=== PATIENT | female | born 1950 | race Caucasian/White ===

== ENCOUNTER 2017-01-09 21:50 | Inpatient (IN) | payer MEDICARE ==
[~2017-01-09] VITALS: Ht 162.6 cm; Wt 81.8 kg
[~2017-01-09 21:50] MED LIST: DILTIAZEM INJ 125 MG in SODIUM CHLORIDE 0.9% INJ 100 ML IV PRN; LEVO125T4 PO; NALOXONE HCL 0.4 MG/ML AMP IV PUSH PRN; POTA8CAP PO; SIMV5TAB3 PO; SODIUM CHLORIDE 0.9% FLUSH 10 ML FLUSH IV FLUSH PRN
[2017-01-09 22:15] VITALS: BP 135/90; PULSE 71; RESP 18; TEMP 98.4; O2SAT 97
[2017-01-09] MEDS ORDERED: DILTIAZEM 125 MG/NS 100 ML IV PRN ×2 (22:30)
[2017-01-10] VITALS (15 sets, daily range): BP systolic 100–117; BP diastolic 54–65; PULSE 62–80; RESP 16–18; TEMP 97.7–100.1; O2SAT 96–100
[2017-01-10] MEDS: SODIUM CHLORIDE 0.9% FLUSH 10 ML FLUSH IV FLUSH SCH ×5 (01:13→21:00)
[2017-01-10] MEDS: SODIUM CHLOR 0.9% 1000 ML INJ 1,000 ML IV SCH ×3 (01:14→18:00)
[2017-01-10] MEDS: PIPERACIL-TAZO 4.5 GM PREMIX 100 ML IV SCH ×4 (01:15→20:30)
[2017-01-10 01:38] LABS: AUTOMATED NEUTROPHIL # 8.5 TH/MM3 (1.8-7.7); BASOPHIL % 0.2 % (0.0-2.0); EOSINOPHIL % 0.2 % (0.0-4.0); HEMO FLAGS DIFF FINAL; LYMPH % 8.3 % (9.0-44.0); LYMPHOCYTE # 0.8 TH/MM3 (1.0-4.8); MEAN CELL VOLUME 90.9 FL (80.0-100.0); MEAN CORPUSCULAR HEMOGLOBIN 29.7 PG (27.0-34.0); MEAN CORPUSCULAR HGB CONC 32.7 % (32.0-36.0); MONO % 5.1 % (0.0-8.0); NEUT % 86.2 % (16.0-70.0); PLATELET COUNT 174 TH/MM3 (150-450); RED BLOOD COUNT 4.18 MIL/MM3 (4.00-5.30); RED CELL DISTRIBUTION WIDTH 13.6 % (11.6-17.2); WHITE BLOOD COUNT 9.9 TH/MM3 (4.0-11.0)
--- NOTE | 2017-01-10 01:54 | HHI.HP ---
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 starting 2am no black or red color only food in the vomitus vomited about 22x total, the last vomit was yellow bile dont think she had fever ; abdominal pain in the mid abdomen food ate was from home, no one else was sick the heart rate was high in ER afib with RVR but BP was coming down too did have chest pain the night before all this started at the time of chest pain then, there was no vomiting, no nausea, no abdominal pain, but did feel the palpitations no radiation of pain mid sternal fell at work on the 12/28/16 onto her left side left side has been irritated since that fall- left shoulder went to urgent care then- they did xrays - was just told shoulder was just inflammed, no fracture has been off work for 2 weeks because of that Review of Systems Except as stated in HPI: all other systems reviewed are Neg Past Family Social History Past Medical History htn was told she needs antibiotics prior to surgery- because of 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 hypothyroidism post thyroidectomy due to graves osteoporosis Past Surgical History thyroidectomy breast sx x 5, for 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 tubal ligation partial hysterectomy efra pereyra Allergies: Coded Allergies: No Known Allergies (Unverified , 01/09/17) Family History hodgkins disease- daughter at 24 sister- uterine cancer too brother- intestine cancer Social History used to smoke , quit 25yrs ago no etoh abuse no drugs lives with of 50yrs , still driving, woks at [employer] Physical Exam Vital Signs Vital Signs Date Time Temp Pulse Resp B/P (MAP) Pulse Ox O2 Delivery O2 Flow Rate FiO2 01/09/17 22:15 98.4 71 18 135/90 (105) 97 Physical Exam GENERAL: This is a pleasant lady, looks weak and dehydrated clinically, in no apparent distress. SKIN: No rashes, ecchymoses or lesions. Cool and dry. HEAD: Atraumatic. Normocephalic. No temporal or scalp tenderness. EYES: No scleral icterus. No injection or drainage. ENT: Nose without bleeding, purulent drainage or septal hematoma. Airway patent. NECK: Trachea midline. No JVD CARDIOVASCULAR: Regular rate and rhythm without gallops, or rubs. systolic murmur at precordium with radiation to axila RESPIRATORY: Clear to auscultation. Breath sounds equal bilaterally. No wheezes , rales, or rhonchi. GASTROINTESTINAL: Abdomen soft, non-tender, nondistended. . No guarding. MUSCULOSKELETAL: Extremities without clubbing, cyanosis, or edema.No calf tenderness. NEUROLOGICAL: Awake and alert. Motor and sensory grossly within normal limits. Normal speech. Laboratory Laboratory Tests Test 01/10/17 01:10 White Blood Count 9.9 Red Blood Count 4.18 Hemoglobin 12.4 Hematocrit 38.0 Mean Corpuscular Volume 90.9 Mean Corpuscular Hemoglobin 29.7 Mean Corpuscular Hemoglobin Concent 32.7 Red Cell Distribution Width 13.6 Platelet Count 174 Mean Platelet Volume 9.7 Neutrophils (%) (Auto) 86.2 Lymphocytes (%) (Auto) 8.3 Monocytes (%) (Auto) 5.1 Eosinophils (%) (Auto) 0.2 Basophils (%) (Auto) 0.2 Neutrophils # (Auto) 8.5 Lymphocytes # (Auto) 0.8 Monocytes # (Auto) 0.5 Eosinophils # (Auto) 0.0 Basophils # (Auto) 0.0 CBC Comment DIFF FINAL Differential Comment Result Diagram: 01/10/17 0110 Caprini VTE Risk Assessment Caprini VTE Risk Assessment: Mod/High Risk (score >= 2) Caprini Risk Assessment Model Point Value = 1 Point Value = 2 Point Value = 3 Point Value = 5 Age 41-60 Minor surgery BMI > 25 kg/m2 Swollen legs Varicose veins or History of unexplained or recurrent spontaneous Oral contraceptives or hormone replacement Sepsis (< 1 month) Serious lung disease, including pneumonia (< 1 month) Abnormal pulmonary function Acute myocardial infarction Congestive heart failure (< 1 month) History of inflammatory bowel disease Medical patient at bed rest Age 61-74 Arthroscopic surgery Major open surgery (> 45 min) Laparoscopic surgery (> 45 min) Malignancy Confined to bed (> 72 hours) Immobilizing plaster cast Central venous access Age >= 75 History of VTE Family history of VTE Factor V Leiden Prothrombin [id number] Lupus anticoagulant Anticardiolipin antibodies Elevated serum homocysteine Heparin-induced thrombocytopenia Other congenital or acquired thrombophilia Stroke (< 1 month) Elective arthroplasty Hip, pelvis, or leg fracture Acute spinal cord injury (< 1 month) Prophylaxis Regimen Total Risk Factor Score Risk Level Prophylaxis Regimen 0-1 Low Early ambulation 2 Moderate Order ONE of the following: *Sequential Compression Device (SCD) *Heparin 5000 units SQ BID 3-4 Higher Order ONE of the following medications: *Heparin 5000 units SQ TID *Enoxaparin/Lovenox 40 mg SQ daily (WT < 150 kg, CrCl > 30 mL/min) *Enoxaparin/Lovenox 30 mg SQ daily (WT < 150 kg, CrCl > 10-29 mL/min) *Enoxaparin/Lovenox 30 mg SQ BID (WT < 150 kg, CrCl > 30 mL/min) AND/OR *Sequential Compression Device (SCD) 5 or more Highest Order ONE of the following medications: *Heparin 5000 units SQ TID (Preferred with Epidurals) *Enoxaparin/Lovenox 40 mg SQ daily (WT < 150 kg, CrCl > 30 mL/min) *Enoxaparin/Lovenox 30 mg SQ daily (WT < 150 kg, CrCl > 10-29 mL/min) *Enoxaparin/Lovenox 30 mg SQ BID (WT < 150 kg, CrCl > 30 mL/min) AND *Sequential Compression Device (SCD) Assessment and Plan Assessment and Plan Impression: NSTEMI gastritis vs ACS related afib with RVR secondary to dehydration vs ACS hypotension- due to dehydration/ cardizem induced/ mild cardiogenic shock cardiac murmur on exam hypertriglyceridemia - per patient , from last blood work hypokalemia- replace 40meq po Plan: start heparin drip npo for cath cxr personally reviewed- no evidence of fluid overload/ infiltrates/ pneumothorax ekg reveiwed- irregularly irregular, no acute st t changes continue cardizem cardiology consult continue iv fluids at 100 cc/hr ns echo in am resume home meds check tsh dvt prophylaxis on heparin drip Discussed Condition With patient, her nurse Physician Certification 2 Midnight Certification Type: Admission for Inpatient Services Order for Inpatient Services The services are ordered in accordance with Medicare regulations or non- Medicare payer requirements, as applicable. In the case of services not specified as inpatient-only, they are appropriately provided as inpatient services in accordance with the 2-midnight benchmark. Estimated LOS (days): 2 days is the estimated time the patient will need to remain in the hospital, assuming treatment plan goals are met and no additional complications. Post-Hospital Plan: Home Delisa Pollard MD Jan 10, 2017 01:53
[2017-01-10 01:56] LABS: ANION GAP 8 MEQ/L (5-15); AST (GOT) 19 U/L (15-37); BICARBONATE 27.2 MEQ/L (21.0-32.0); BLOOD UREA NITROGEN 13 MG/DL (7-18); CHLORIDE 110 MEQ/L (98-107); GLOMERULAR FILTRATION RATE 81 ML/MIN (>89); POTASSIUM 3.4 MEQ/L (3.5-5.1); SODIUM (NA) 145 MEQ/L (136-145)
[2017-01-10 01:58] LABS: ALKALINE PHOSPHATASE 75 U/L (45-117); ALT (GPT) 16 U/L (10-53); TOTAL BILIRUBIN ADULT 0.4 MG/DL (0.2-1.0)
[2017-01-10] MEDS ORDERED: HEPARIN SODIUM - IV 10,000 UNITS/10 ML VIAL IV PUSH ONE (02:00)
[2017-01-10] MEDS ORDERED: HEPARIN-D5W 25,000 U/250 ML 250 ML IV PRN (02:00)
[2017-01-10] MEDS ORDERED: HEPARIN 25,000 UNITS-D5W 250 ML - PREMIX IV PRN (02:15)
[2017-01-10] MEDS ORDERED: POTASSIUM CHLORIDE 20 MEQ CONTROLLED RELEASE TAB PO ONE ×2 (02:15→10:45)
[2017-01-10] MEDS: LEVOTHYROXINE SODIUM 125 MCG TAB PO SCH (06:00)
[2017-01-10] MEDS ORDERED: HEPARIN SODIUM - IV 10,000 UNITS/10 ML VIAL IV PUSH PRN ×2 (08:00)
[2017-01-10] MEDS ORDERED: MORPHINE SULFATE 4 MG/ML INJ IV PUSH PRN ×2 (08:30)
[2017-01-10] MEDS ORDERED: MAGNESIUM HYDROXIDE SUSP 30 ML CUP PO PRN (08:30)
[2017-01-10] MEDS ORDERED: NALOXONE HCL 0.4 MG/ML AMP IV PUSH PRN (08:30)
[2017-01-10] MEDS ORDERED: ONDANSETRON HCL 4 MG/2 ML VIAL IVP PRN (08:30)
[2017-01-10] MEDS ORDERED: SODIUM CHLORIDE 0.9% FLUSH 10 ML FLUSH IV FLUSH PRN ×2 (08:30→14:00)
[2017-01-10] MEDS ORDERED: ACETAMINOPHEN 325 MG TAB PO PRN ×2 (08:30)
[2017-01-10] MEDS ORDERED: SENNOSIDES 8.6 MG TAB PO PRN (08:30)
[2017-01-10] MEDS ORDERED: LACTULOSE SYRUP 20 GM/30 ML CUP PO PRN (08:30)
[2017-01-10] MEDS ORDERED: BISACODYL 10 MG SUPP RECTAL PRN (08:30)
[2017-01-10] MEDS ORDERED: oxyCODONE/ACETAMINOPHEN 5 MG/325 MG TAB PO PRN (08:30)
[2017-01-10] MEDS ORDERED: oxyCODONE/ACETAMINOPHEN 10 MG/325 MG TAB PO PRN (08:30)
[2017-01-10] MEDS: DOCUSATE SODIUM 50 MG/SENNA 8.6 MG TAB PO SCH ×2 (09:15→20:30)
[2017-01-10] MEDS ORDERED: PROCHLORPERAZINE 25 MG SUPP RECTAL PRN (09:30)
--- NOTE | 2017-01-10 10:34 | HHI.PR ---
Subjective Remarks was vomiting all day long starting 2am no black or red color only food in the vomitus vomited about 22x total, the last vomit was yellow bile dont think she had fever ; abdominal pain in the mid abdomen food ate was from home, no one else was sick the heart rate was high in ER afib with RVR but BP was coming down too did have chest pain the night before all this started at the time of chest pain then, there was no vomiting, no nausea, no abdominal pain, but did feel the palpitations no radiation of pain mid sternal fell at work on the 12/28/16 onto her left side left side has been irritated since that fall- left shoulder went to urgent care then- they did xrays - was just told shoulder was just inflammed, no fracture has been off work for 2 weeks because of that 01-10 HAS CONVERTED OUT OF AFIB- IN [facility] 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 AT BEDSIDE TROPONINS ARE TRENDING DOWN NOW HAS A HEADACHE DENIES ANY CHEST PAIN OR NAUSEA OR VOMITING NOW REMAINS ON A HEPARIN DRIP HAS NOT SEEN CARDIOLOGY YET Objective Vitals Vital Signs Date Time Temp Pulse Resp B/P (MAP) Pulse Ox O2 Delivery O2 Flow Rate FiO2 01/10/17 08:15 98.8 73 18 107/54 (71) 96 01/10/17 07:01 77 01/10/17 03:00 97.7 80 16 100/65 (77) 98 01/09/17 22:15 98.4 71 18 135/90 (105) 97 I/O 01/09/17 01/09/17 01/09/17 01/10/17 01/10/17 01/10/17 07:00 15:00 23:00 07:00 15:00 23:00 Intake Total 840 ml Balance 840 ml Intake Oral 240 ml IV Total 600 ml # Voids 1 Result Diagram: 01/10/17 0110 01/10/17 0110 Other Results Laboratory Tests Test 01/10/17 01:10 01/10/17 06:46 White Blood Count 9.9 TH/MM3 Red Blood Count 4.18 MIL/MM3 Hemoglobin 12.4 GM/DL Hematocrit 38.0 % Mean Corpuscular Volume 90.9 FL Mean Corpuscular Hemoglobin 29.7 PG Mean Corpuscular Hemoglobin Concent 32.7 % Red Cell Distribution Width 13.6 % Platelet Count 174 TH/MM3 Mean Platelet Volume 9.7 FL Neutrophils (%) (Auto) 86.2 % Lymphocytes (%) (Auto) 8.3 % Monocytes (%) (Auto) 5.1 % Eosinophils (%) (Auto) 0.2 % Basophils (%) (Auto) 0.2 % Neutrophils # (Auto) 8.5 TH/MM3 Lymphocytes # (Auto) 0.8 TH/MM3 Monocytes # (Auto) 0.5 TH/MM3 Eosinophils # (Auto) 0.0 TH/MM3 Basophils # (Auto) 0.0 TH/MM3 CBC Comment DIFF FINAL Differential Comment Blood Urea Nitrogen 13 MG/DL Creatinine 0.72 MG/DL Random Glucose 99 MG/DL Total Protein 6.4 GM/DL Albumin 3.3 GM/DL Calcium Level 7.5 MG/DL Alkaline Phosphatase 75 U/L Aspartate Amino Transf (AST/SGOT) 19 U/L Alanine Aminotransferase (ALT/SGPT) 16 U/L Total Bilirubin 0.4 MG/DL Sodium Level 145 MEQ/L Potassium Level 3.4 MEQ/L Chloride Level 110 MEQ/L Carbon Dioxide Level 27.2 MEQ/L Anion Gap 8 MEQ/L Estimat Glomerular Filtration Rate 81 ML/MIN Total Creatine Kinase 154 U/L 133 U/L Troponin I 2.41 NG/ML 1.66 NG/ML Thyroid Stimulating Hormone 3rd Gen 0.309 uIU/ML Imaging Chest, Single AP Signed EXAM DATE/TIME: 01/09/2017 16:01 [facility] COMPARISON: No previous studies available for comparison. INDICATIONS : Vomitng and abdominal pain. MEDICAL HISTORY : AFIB SURGICAL HISTORY : Tubal ligation. Hysterectomy. thyroidectomy ENCOUNTER: Initial ACUITY: 1 day PAIN SCORE: 1/10 LOCATION: chest FINDINGS: A single view of the chest demonstrates the lungs to be symmetrically aerated without evidence of mass, infiltrate or effusion. The cardiomediastinal contours are unremarkable. Osseous structures are intact. CONCLUSION: No acute disease. Marcial Tubbs Jr., MD on January 09, 2017 at 16:14 CT Abd/Pel W IV Contrast(Rout) Signed EXAM DATE/TIME: 01/09/2017 13:49 [facility] COMPARISON: No previous studies available for comparison. INDICATIONS : Diffuse abdomen pain. IV CONTRAST: 73 cc Omnipaque 350 (iohexol) IV ORAL CONTRAST: No oral contrast ingested. RADIATION DOSE: 10.23 CTDIvol (mGy) MEDICAL HISTORY : None SURGICAL HISTORY : None. ENCOUNTER: Initial ACUITY: 1 day PAIN SCALE: 4/10 LOCATION: Abdomen TECHNIQUE: Volumetric scanning of the abdomen and pelvis was performed. Using automated exposure control and adjustment of the mA and/or kV according to patient size, radiation dose was kept as low as reasonably achievable to obtain optimal diagnostic quality images. DICOM format image data is available electronically for review and comparison. FINDINGS: The lung base is are clear. There is no pericardial effusion Small cyst right lobe of the liver Spleen, pancreas and adrenals unremarkable There are no gallstones There is symmetric renal function There is no ascites or adenopathy I don't see evidence for colitis Pelvic contents unremarkable Moderate arterial calcifications are noted CONCLUSION: Negative, I do not see an etiology for the patient's diffuse abdominal pain. There are no inflammatory changes evident. Nuno Remy MD FACR on January 09, 2017 at 14:39 Objective Remarks GENERAL: Awake, Alert oriented 3 talkative and cooperative SKIN: Warm and dry. HEAD: Atraumatic. Normocephalic. EYES: Pupils equal and round. No scleral icterus. No injection or drainage. Extraocular muscles intact ENT: No nasal bleeding or discharge. Mucous membranes pink and moist. Tongue is midline NECK: Trachea midline. No JVD. Supple CARDIOVASCULAR: Regular rate and rhythm. S1-S2 no S3 or S4 no heave or thrill or rub or gallop RESPIRATORY: No accessory muscle use. Clear to auscultation. Breath sounds equal bilaterally. GASTROINTESTINAL: Abdomen soft, non-tender, nondistended. Hepatic and splenic margins not palpable. MUSCULOSKELETAL: Extremities without clubbing, cyanosis, or edema. No obvious deformities. NEUROLOGICAL: Awake and alert. No obvious cranial nerve deficits. Motor grossly within normal limits. Five out of 5 muscle strength in the arms and legs. Normal speech. PSYCHIATRIC: Appropriate mood and affect; insight and judgment normal. Medications and IVs Current Medications Sodium Chloride 1,000 ml @ 100 mls/hr Q10H IV Last administered on 01/10/17t 01:14; Start 01/09/17 at 22:00 Sodium Chloride (NS Flush) 2 ml UNSCH PRN IV FLUSH FLUSH AFTER USING IV ACCESS ; Start 01/09/17 at 19:30; Stop 01/10/17 at 09:15; Status DC Sodium Chloride (NS Flush) 2 ml BID IV FLUSH Last administered on 01/10/17 08 :13; Start 01/09/17 at 21:00; Stop 01/10/17 at 09:15; Status DC Naloxone HCl (Narcan Inj) 0.4 mg UNSCH PRN IV PUSH SEE LABEL COMMENTS; Start 01/09/17 at 19:30; Stop 01/10/17 at 09:16; Status DC Piperacillin Sod/ Tazobactam Sod 100 ml @ 200 mls/hr Q6H IV Last administered on 01/10/17 08:13; Start 01/10/17 at 02:00 Diltiazem HCl 125 mg/Sodium Chloride 125 ml @ 5 mls/hr TITRATE PRN IV Tachycardia; Start 01/09/17 at 19:30; Status UNV Diltiazem HCl 125 mg/Sodium Chloride 125 ml @ 5 mls/hr TITRATE PRN IV Tachycardia; Start 01/09/17 at 22:30 Heparin Sodium (Porcine) (Heparin Inj) 7,000 units ONCE ONCE IV PUSH ; Start 01/10/17 at 02:00; Stop 01/10/17 at 02:01; Status Cancel Heparin Sodium (Porcine) (Heparin Inj) 5,000 units UNSCH PRN IV PUSH APTT LESS THAN 25; Start 01/10/17 at 08:00; Status Cancel Heparin Sodium (Porcine) (Heparin Inj) 2,500 units UNSCH PRN IV PUSH APTT 25 TO 39; Start 01/10/17 at 08:00; Status Cancel Heparin Sodium/ Dextrose 250 ml @ 0 mls/hr TITRATE PRN IV Coagulation Management; Start 01/10/17 at 02:00; Status UNV Heparin Sodium/ Dextrose 250 ml @ 9 mls/hr TITRATE PRN IV Coagulation Management Last administered on 01/10/17 02:49; Start 01/10/17 at 02:15 Potassium Chloride (KCl) 40 meq ONCE ONCE PO Last administered on 01/10/17 02:15; Start 01/10/17 at 02:15; Stop 01/10/17 at 02:21; Status DC Levothyroxine Sodium (Synthroid) 125 mcg DAILY@0600 PO Last administered on 06:00; Start 01/10/17 at 06:00 Sodium Chloride (NS Flush) 2 ml UNSCH PRN IV FLUSH FLUSH AFTER USING IV ACCESS ; Start 01/10/17 at 08:30 Sodium Chloride (NS Flush) 2 ml BID IV FLUSH Last administered on 01/10/17 09 :00; Start 01/10/17 at 09:00 Acetaminophen (Tylenol) 650 mg Q4H PRN PO TEMP > 100.4; Start 01/10/17 at 08: 30 Ondansetron HCl (Zofran Inj) 4 mg Q6H PRN IVP NAUSEA OR VOMITING; Start at 08:30 Prochlorperazine (Compazine Supp) 25 mg Q12H PRN RECTAL NAUSEA OR VOMITING; Start 01/10/17 at 09:30 Acetaminophen (Tylenol) 650 mg Q6H PRN PO PAIN SCALE 1 TO 2; Start 01/10/17 at 08:30 Oxycodone/ Acetaminophen (Percocet 5-325 Mg) 1 tab Q6H PRN PO PAIN SCALE 3 TO 5; Start 01/10/17 at 08:30 Oxycodone/ Acetaminophen (Percocet 10-325 Mg) 1 tab Q6H PRN PO PAIN SCALE 6 TO 10; Start 01/10/17 at 08:30 Morphine Sulfate (Morphine Inj) 2 mg Q3H PRN IV PUSH Pain 3-5; if unable to take PO; Start 01/10/17 at 08:30 Morphine Sulfate (Morphine Inj) 4 mg Q3H PRN IV PUSH Pain 6-10;if unable to take PO; Start 01/10/17 at 08:30 Naloxone HCl (Narcan Inj) 0.4 mg UNSCH PRN IV PUSH SEE LABEL COMMENTS; Start 01/10/17 at 08:30 Senna/Docusate Sodium (Iwona-Colace) 1 tab BID PO ; Start 01/10/17 at 09:15 Magnesium Hydroxide (Milk Of Magnesia Liq) 30 ml Q12H PRN PO Mild constipation ; Start 01/10/17 at 08:30 Sennosides (Senokot) 17.2 mg Q12H PRN PO Moderate constipation; Start at 08:30 Bisacodyl (Dulcolax Supp) 10 mg DAILY PRN RECTAL SEVERE CONSITIPATION; Start 01/10/17 at 08:30 Lactulose (Lactulose Liq) 30 ml DAILY PRN PO SEVERE CONSITIPATION; Start 01/10 at 08:30 A/P Assessment and Plan NSTEMI gastritis vs ACS related afib with RVR secondary to dehydration vs ACS hypotension- due to dehydration/ cardizem induced/ mild cardiogenic shock cardiac murmur on exam hypertriglyceridemia - per patient , from last blood work hypokalemia- replace 40meq po Plan: start heparin drip npo for cath Off Cardizem drip cardiology consult continue iv fluids at 100 cc/hr ns echo in am resume home meds check tsh dvt prophylaxis on heparin drip AWAIT CARDIAC EVALUATIONS? CARDIAC CATH? AWAIT THEIR EVALUATIONS Discharge Planning PENDING CARDIAC EVALUATIONS Nuno Jarvis DO Jan 10, 2017 10:34
[2017-01-10 13:00] LABS: APTT (PATIENT) 44.7 SEC (24.3-30.1)
[2017-01-10] MEDS ORDERED: MIDAZOLAM HCL 2 MG/2 ML VIAL ONE (13:06)
[2017-01-10] MEDS ORDERED: HEPARIN-NS/PF INJ 1,000 ML ONE (13:06)
--- NOTE | 2017-01-10 13:54 | CATHPROC ---
[employer] HIS Report Study Information Study Number Admission Scheduled Start Study Start [id number] Jan 09 2017 10:00PM 01/10/2017 Jan 10 2017 1:04PM [place] [facility] Cardiac Catheterization Admit Source Facility Department Other [facility] - [facility] Operator Physician and Clinical Staff Initial Bk Zepeda Plant Clerk Carlos Manuel De Jesus Plant Clerk Ivory Holden,RN Recorder Ivory Dacosta,RT(R) Scrub Eliu, Aarti,PROPERTY SPECIALIST TECH2 Procedures Performed Procedure Location (Site) Vessel Name Coronary Angiograms LCA Left Coronary Coronary Angiograms RCA Right Coronary LV Gram-hand inj. LV LV Ventricle Wire insertion Fem Art (right) Femoral Art Equipment Time Safety And Health Manager Description Size Mfg Part Number Used/Scraped TRANSDUCER, TRUWAVE [id number] 13:14 ISAACS BILLY * Used W/STOCKCOCK *[id number] *[id number] *[id number] 13:14 [employer] PACK, CCL CUSTOM * Used *[id number] 13:14 Vision [employer] PACER PEN, SKIN DUAL W/ RULER * Used *[id number] 13:14 [employer] WIRE, 3MMJ .035 180CM 180CM Used *[id number] 13:14 [employer] MANIFOLD, 4 PORT * Used *[id number] 13:14 NYCOMED OMNIPAQUE, 350 MG, 150ML 150ML [id number] 13:14 [place] [employer] MEDICAL BLANKET,WARM AIR CCL * Used *[id number] 13:14 [employer] MEDICAL SHEATH, FR4 TERUMO (10CM) FR 4 Used *[id number] History: Current Medications Medication Dosage/Unit Route Frequency Last Date/Time Taken ASA HEPARIN History: Allergies Allergy Reaction No Known Allergies History: Risk Factors Family History of Hypertension Dyslipidemia Previous WI Previous Heart Failure Premature CAD Yes Yes Yes No No Prior Valve Prior PCI Prior CABG Surgery No No No Cerebrovascular Peripheral Artery Chronic Lung On Dialysis Diabetes Disease Disease Disease No No No No No History: Stress Tests Stress or Imaging Studies Performed No History: Other Current Smoker Method Quit Packs a Day Years Used Pack Years No Cigarettes 25 Years Ago 1 20 20 Labs Hgb (g/dl) Hct (%) WBC (l/cumm) Platelets (thousands) 11.60-17.00 35.00-51.00 4.00-11.00 150.00-450.00 12.4 38 9.9 174 Glucose (mg/dl) BUN (mg/dl) Creatinine (mg/dl) BUN:Creatinine (1:x) 74.00-106.00 7.00-18.00 0.50-1.30 10.00-20.00 99 13 0.7 18.6 Na (meq/l) K (meq/l) 136.00-145.00 3.50-5.10 145 3.4 INR (PTT:PT) 0.90-1.10 1 Troponin I (ng/ml) CPK (u/l) CPK-MB (ng/ML) 0.02-0.05 26.00-308.00 0.50-3.60 1.6 154 Not Drawn Medication Medication Total Dose (Bolus/Oral) Medication Total Dosage/Unit 1% XYLOCAINE 20 mL VERSED 1 mg Medications (Bolus/Oral) Medication Time Given Dosage/Unit Administered By Reason VERSED 01/10/2017 1:20:49 PM 1 mg Ivory Holden 1 mg VERSED given in lab by Ivory Holden, RN via Peripheral IV. Ordered by Bk Weeks. 1% XYLOCAINE 01/10/2017 1:22:04 PM 20 mL Bk Weeks 20 mL 1% XYLOCAINE given in lab by Bk Weeks in Right Groin via Subcutaneous. Medication (Drip) Medication Time Given Dosage/Unit Concentration/Unit Diluent (ml) Solution IV Solutions 01/10/2017 1:09:49 PM 0 mL (IV) 500 NaCl .9 Patient arrived on IV Solutions in Right Antecubital via Peripheral IV. Pump/Drip Flow = 20 ml/hr usi ng NaCl .9. Ordered by Bk Weeks. Initial Case Assessment Cardiovascular HR Rhythm Chest Pain 65 reg 0 Edema Present Skin color Skin None Normal Warm Circulatory - Right Pulses Dorsalis Pedis Femoral 1 2 Scale (0,1,2,3,4,d) Circulatory - Left Pulses Dorsalis Pedis Femoral 1 2 Scale (0,1,2,3,4,d) Circulatory - Lower Extremities Color Lower Right Color Lower Left Normal Normal Neurological State Oriented to time-place- Alert Moves all extremities person Respiration - General Respiration Rate SpO2 (%) (B/min) 11 99 Chronological Log Time Study Chronological Log 13:00:36 Patient arrived via Bed. 13:04:42 Patient Name, D.O.B, / Armband Verified By R.N. 13:04:44 Consent signed by the physician and the patient and verified by the [facility] staff. 13:04:45 Pre-op and post- op instructions given; patient acknowledges understanding of instructions. 13:04:46 Verbal Stimulation=2 Physical Stimulation=2 Airway=2 Respiration=2 TOTAL=8. (0=absent, 1=li mited, 2=present) 13:08:29 Reference ECG taken 13:09:15 Patient has been NPO for Less than 6Hrs. 13:09:17 Skin Breakdown-none 13:09:23 Patient Warmer Placed on the Table. 13:09:41 A # 20 IV was noted in the Antecubital (right). Grade = 0 Patient arrived on IV Solutions in Right Antecubital via Peripheral IV. Pump/Drip Flow = 20 ml/ hr using NaCl .9. Ordered 13:09:49 by Bk Weeks. 13:10:18 History and physical on the chart or being dictated. Assessment: Initial Case, HR=65 BPM, Rhythm=reg, Chest Pain=0, Edema=None, Color=Normal, Skin = Warm Right Pulses: Wilfred Ped=1, Femoral=2 Left Pulses: Wilfred Ped=1, Femoral=2 13:10:20 Lower Right Extremities: Color=Normal Lower Left Extremities: Color=Normal Neurological: State=Alert, Ox3, DOAN Respiration: Resp=11 B/min, SpO2=99 % Vitals capture started with the following parameters, Patient=Adult, Interval=5 min, Initial Pr cegzhv=469 mmHg, 13:10:35 Deflation Rate=5 mmHg, Cuff placed on Right Arm 13:11:17 Bilateral groins prepped with 2% chlorhexidine, and draped after a 3 minute waiting time. 13:11:20 HR=68 bpm, XNTW=010/60 mmhg, SpO2=98.0 %, Resp=15 B/min, Pain=0, Katie=10, Barahona=2 13:11:37 MD paged 13:16:15 HR=66 bpm, IMNH=604/55 mmhg, SpO2=98.0 %, Resp=14 B/min, Pain=0, Katie=10, Barahona=2 13:16:55 Pressure channel 1 zeroed. 13:17:53 MD arrived. 13:20:09 heparin discontinued in pt s jesus, Time Out. Correct patient, correct procedure, correct physician, power injector not loaded with contrast with surgical 13:20:24 team present. Time Out Concurred by MD and individual staff in procedure. 13:20:47 Case Start 13:20:49 1 mg VERSED given in lab by Ivory Holden RN via Peripheral IV. Ordered by Panda Weeks. 13:21:02 Verbal Stimulation=2 Physical Stimulation=2 Airway=2 Respiration=2 TOTAL=8. (0=absent, 1=li mited, 2=present) 13:21:10 HR=68 bpm, IJUB=736/66 mmhg, SpO2=96.0 %, Resp=14 B/min, Pain=0, Katie=10, Barahona=2 13:22:04 20 mL 1% XYLOCAINE given in lab by Bk Weeks in Right Groin via Subcutaneous. 13:22:33 Access site was Right Femoral Artery. 13:22:38 A wire was inserted via Fem Art (right). 13:22:40 A SHEATH, FR4 TERUMO (10CM) FR 4 was advanced into the Fem Art (right) using the [place] us technique. A JR 4.0 INFINITI CATHETER FR 4 was advanced over a wire. OMNIPAQUE, 350 MG, 150ML 150ML was us ed for 13:22:48 injections. 13:22:51 Activated Clotting Time Drawn Recorded Pressure: LV, HR=68, Condition=Condition 1 13:23:35 (Left Ventricle) LV 130/1/19 13:23:43 The LV was manually injected with 10 cc's and visualized. OMNIPAQUE, 350 MG, 150ML 150ML us ed. Recorded Pressure: LV, Ao, HR=68, Condition=Condition 1 13:23:55 (Left Ventricle) LV 135/1/25, (Aorta) Ao 122/53/79 13:25:05 The RCA was injected and visualized at various angles. OMNIPAQUE, 350 MG, 150ML 150ML use d. 13:25:18 ACT (Normal Range 90-180) = 155 13:25:27 Catheter was removed Recorded Pressure: Ao, HR=69, Condition=Condition 1 13:25:33 (Aorta) Ao 113/47/72 A JL 4.0 INFINITI CATHETER FR 4 was advanced over a wire. OMNIPAQUE, 350 MG, 150ML 150ML was u sed for 13:25:40 injections. 13::57 The LCA was injected and visualized at various angles. OMNIPAQUE, 350 MG, 150ML 150ML use d. 13:26:13 HR=68 bpm, SJZG=677/57 mmhg, SpO2=97.0 %, Resp=18 B/min, Pain=0, Katie=10, Barahona=2 13:28:53 Catheter was removed 13::57 Case End 13:29:20 Catheter(s) removed without difficulty 13:30:22 Sheath removed; pressure applied to access site. Kalee 13:31:12 HR=65 bpm, ROFU=122/52 mmhg, SpO2=99.0 %, Resp=16 B/min, Pain=0, Katie=10, Barahona=2 13:36:11 HR=66 bpm, BCUU=577/61 mmhg, SpO2=97.0 %, Resp=18 B/min, Pain=0, Katie=10, Barahona=2 13:41:12 HR=65 bpm, TXNA=314/57 mmhg, SpO2=99.0 %, Resp=16 B/min, Pain=0, Katie=10, Barahona=2 13:46:11 HR=65 bpm, IOFA=283/53 mmhg, SpO2=97.0 %, Resp=19 B/min, Pain=0, Katie=10, Barahona=2 13:51:12 HR=65 bpm, IYOU=424/54 mmhg, SpO2=97.0 %, Resp=18 B/min, Pain=0, Katie=10, Barahona=2 13:52:43 hemastasis acheived 13:54:38 Vitals capture stopped. End Study - Contrast Media Used In Study Contrast Total Opened (mL) Total Used (mL) Total Wasted (mL) Omnipaque 40 40 0 End Study - Maximum Contrast Load Max Contrast Load (mL) 585.7 End Study - Radiation Exposure Fluoro Time (minutes) 1.0 End Study - Sheaths Sheaths Pulled By Sheath Hold Time (min) Aarti Nowak 20 End Study - Patient Disposition Complications Transferred To No Regular Bed
[2017-01-10] MEDS ORDERED: MISC INFORMATION XX ONE (14:00)
--- NOTE | 2017-01-10 14:28 | MB ---
cc: JANEY OZUNA M.D. DATE OF CONSULTATION 01/10/2017 HISTORY OF PRESENT ILLNESS Ramona is a very pleasant 66-year-old lady who presented to the [facility] yesterday with chief complaint of nausea, vomiting found to be in A-fib with rapid ventricular response. The patient also admitted to some chest pain the day prior, was found have to an elevated troponin and transferred to [facility] for further evaluation and management. She otherwise denies any fever, chills, cough, GI or bleeding, PND, orthopnea, syncope or dizziness. PAST MEDICAL HISTORY 1. As per History of Present Illness. 2. She has history of hypothyroidism, status post thyroidectomy. 3. Hypertension. 4. Osteoporosis. 5. Partial hysterectomy. ALLERGIES None. SOCIAL HISTORY Quit smoking 25 years ago. Denies alcohol use. MEDICATIONS IN THE HOSPITAL 1. Heparin bolus and drip. 2. Cardizem drip. 3. Piperacillin/tazobactam. PHYSICAL EXAMINATION VITAL SIGNS: Blood pressure 101/59, pulse 65. She is currently in normal sinus rhythm. Temperature 98.6, respiratory rate 18. GENERAL: She is alert and oriented x 3, in no acute distress. NECK: Supple. No JVD, no bruit. LUNGS: Clear to auscultation bilaterally. ABDOMEN: Soft, nontender. Positive bowel sounds. EXTREMITIES: No clubbing, cyanosis or edema. LABORATORY DATA White count 9.9, hemoglobin 12.4, hematocrit 38.0, platelet count 174. Troponin 2.41, followed by 1.66 and then 1.40. Sodium 145, potassium 3.4, chloride 110, bicarb 27.2, BUN 13, creatinine 0.72. LFTs normal. TSH is 0.309. INR is not done. EKG Normal sinus rhythm at 75 beats per minute, otherwise normal room. CHEST X-RAY No acute disease. DIAGNOSIS 1. Non-STEMI. 2. Paroxysmal atrial fibrillation. 3. [place] Cardiovascular Society Class IV angina. DISCUSSION The patient has received heparin in the ER, is currently on a heparin drip. Left heart catheterization is medically necessary due to non-STEMI. Further evaluation and management based on the coronary anatomy. We will also further determine the patient's CHADS-VASC score post-cath. MD FELISA Villanueva/SSB /1:49 PM /2:14 PM
--- NOTE | 2017-01-10 15:42 | EKG ---
Date Performed: 01/10/2017 Time Performed: 01:20:36 PTAGE: 66 years EKG: Sinus rhythm Anterior ST-T changes are nonspecific Borderline ECG NO PREVIOUS TRACING DOCTOR: Sanaz Olvera Interpretating Date/Time 01/10/2017 15:41:26
--- NOTE | 2017-01-10 15:45 | ECHRPT ---
Indication: PFO / Structural defect CONCLUSIONS The left ventricular systolic function is low normal with an estimated ejection fraction in the rang e of 50- 55%. Wall thickness is measured at the upper limits of normal. Normal left ventricular size. Mild mitral valve regurgitation. There is moderate tricuspid regurgitation. The estimated pulmonary arterial pressure is 40 mmHg. Trace aortic valve regurgitation. Diffuse calcification of the aortic valve. Mild aortic valve stenosis. BP: 100 / 65 HR: 80 Rhythm: Sinus MEASUREMENTS (Male / Female) Normal Values Technical Quality:Good 2D ECHO LV Diastolic Diameter PLAX 4.3 cm 4.2 - 5.9 / 3.9 - 5.3 cm LV Systolic Diameter PLAX 3.4 cm IVS Diastolic Thickness 1.0 cm 0.6 - 1.0 / 0.6 - 0.9 cm LVPW Diastolic Thickness 1.0 cm 0.6 - 1.0 / 0.6 - 0.9 cm LV Relative Wall Thickness 0.5 LVOT Diameter 1.9 cm M-MODE Aortic Root Diameter MM 2.5 cm LA Systolic Diameter MM 4.0 cm LA Ao Ratio MM 1.6 AV Cusp Separation MM 1.7 cm DOPPLER AV Peak Velocity 282.4 cm/s AV Peak Gradient 31.9 mmHg AV Mean Gradient 18.0 mmHg AV Velocity Time Integral 65.1 cm AI Peak Velocity 366.0 cm/s AI Peak Gradient 53.6 mmHg AI Pressure Half Time 563.0 ms LVOT Peak Velocity 109.0 cm/s LVOT Peak Gradient 4.8 mmHg AV Area Cont Eq pk 1.1 cm MR Peak Velocity 469.0 cm/s MR Peak Gradient 88.0 mmHg Mitral E Point Velocity 119.0 cm/s Mitral A Point Velocity 112.0 cm/s Mitral E to A Ratio 1.1 LV E' Lateral Velocity 12.0 cm/s Mitral E to LV E' Lateral Ratio 9.9 LV E' Septal Velocity 7.5 cm/s Mitral E to LV E' Septal Ratio 15.8 TR Peak Velocity 478.0 cm/s TR Peak Gradient 91.4 mmHg Right Atrial Pressure 10.0 mmHg Pulmonary Artery Systolic Pressu 101.4 mmHg Right Ventricular Systolic Press 101.4 mmHg PV Peak Velocity 95.0 cm/s PV Peak Gradient 3.6 mmHg FINDINGS LEFT VENTRICLE The left ventricular systolic function is low normal with an estimated ejection fraction in the rang e of 50- 55%. Wall thickness is measured at the upper limits of normal. Normal left ventricular size. RIGHT VENTRICLE Normal right ventricular size and systolic function. LEFT ATRIUM The left atrial size is normal. RIGHT ATRIUM The right atrial size is normal. ATRIAL SEPTUM Normal atrial septal thickness without atrial level shunting by limited color doppler interrogation. AORTA The aortic root and proximal ascending aorta are normal in size on limited imaging. MITRAL VALVE Mild mitral valve regurgitation. AORTIC VALVE Trace aortic valve regurgitation. Diffuse calcification of the aortic valve. Mild aortic valve stenosis. Aortic valve area is 1.1 cm. Aortic valve mean gradient is 18 mmHg. TRICUSPID VALVE There is moderate tricuspid regurgitation. The estimated pulmonary arterial pressure is 40 mmHg. PULMONARY VALVE No pulmonary valve regurgitation or stenosis. VESSELS The inferior vena cava is normal in size. PERICARDIUM No pericardial effusion. Jasper Kwon MD (Electronically Signed) Final Date:10 January 2017 15:43
[2017-01-10 15:54] LABS: MAGNESIUM 1.9 MG/DL (1.5-2.5)
[2017-01-10] MEDS ORDERED: IOHEXOL 350 MG/ML 50 ML BTL (for Cath Lab) OTHER ONE (16:51)
--- NOTE | 2017-01-10 17:48 | MA ---
cc: BK OZUNA M.D. DATE: 01/10/2017 TYPE OF PROCEDURES: The left heart catheterization, left angiography coronary angiography. INDICATIONS 1. Non STEMI. 2. [place] Cardiovascular Society class IV angina, new onset A fib coronary artery disease. The patient brought to the cardiac catheterization laboratory, prepped and draped in the usual sterile fashion, 10 cc of 1% of Lidocaine was use to locally anesthetize the right common femoral artery and a 4-Micronesian sheath was subsequently placed in the right femoral artery, 4-Micronesian JR-4, JL-4 catheter were used to perform a left and right coronary angiography. Left ventriculography. FINDINGS LV pressure is 125 / 08-10 ejection fraction 70%. Right coronary is dominant it has mild disease in the proximal segment up to 50% angiographically. The left main coronary artery has no focal stenosis however, it is relatively small. Probably a 3-5 mm diameter vessel. The proximal left anterior descending is 4.5 to 5 mm in diameter. The left circumflex vessel has mild disease in the prox-mid segment up to 20% angiographically. Gives off a large first obtuse marginal vessel which is tortuous and approaches the apex has no significant disease angiographically. Left anterior descending has a prox-mid 40% stenosis, it is a transapical vessel, the first diagonal artery is a small to medium size vessel with no significant disease angiographically. CONCLUSION Angiographically mild to moderate three-vessel coronary disease in a right-dominant system as detailed above. Normal hyperdynamic left ventricle systolic function ejection fraction is 70%. Left ventricle appears to be hyperdynamic. The LVEDP is 10 consistent with the patient's history of up with a prolonged nausea and vomiting and dehydration. Recommend medical management of coronary disease with anticoagulation for atrial fibrillation and statin provided per NCP guidelines. I can only speculate that the patient's elevated troponin was possibly related to high demand from atrial fibrillation and rapid ventricular response of low supply due to dehydration, intravascular volume depletion and the left anterior descending and/or proximal right stenosis was manifested under those conditions. However on this catheterization there is no stenosis significant enough to warrant intervention. Bk Ozuna MD Ashok/ /1:33 PM /5:31 PM
[2017-01-11] VITALS (16 sets, daily range): BP systolic 95–123; BP diastolic 58–78; PULSE 53–77; RESP 18; TEMP 97.6–98.4; O2SAT 96–100
[2017-01-11] MEDS: PIPERACIL-TAZO 4.5 GM PREMIX 100 ML IV SCH ×2 (02:43→09:54)
[2017-01-11] MEDS: SODIUM CHLOR 0.9% 1000 ML INJ 1,000 ML IV SCH (04:00)
[2017-01-11] MEDS: LEVOTHYROXINE SODIUM 125 MCG TAB PO SCH (05:44)
[2017-01-11 06:59] LABS: AUTOMATED NEUTROPHIL # 1.4 TH/MM3 (1.8-7.7); BASOPHIL % 0.9 % (0.0-2.0); EOSINOPHIL # 0.1 TH/MM3 (0-0.4); EOSINOPHIL % 3.5 % (0.0-4.0); HEMATOCRIT 36.7 % (35.0-46.0); HEMO FLAGS DIFF FINAL; LYMPH % 32.2 % (9.0-44.0); MEAN CELL VOLUME 91.4 FL (80.0-100.0); MONO % 15.8 % (0.0-8.0); NEUT % 47.6 % (16.0-70.0); PLATELET COUNT 141 TH/MM3 (150-450); RED BLOOD COUNT 4.02 MIL/MM3 (4.00-5.30)
[2017-01-11 07:19] LABS: ANION GAP 5 MEQ/L (5-15); AST (GOT) 15 U/L (15-37); BLOOD UREA NITROGEN 9 MG/DL (7-18); CHLORIDE 109 MEQ/L (98-107); GLOMERULAR FILTRATION RATE 73 ML/MIN (>89); MAGNESIUM 2.1 MG/DL (1.5-2.5); POTASSIUM 3.6 MEQ/L (3.5-5.1); SODIUM (NA) 141 MEQ/L (136-145)
[2017-01-11 07:33] LABS: ALKALINE PHOSPHATASE 63 U/L (45-117); ALT (GPT) 14 U/L (10-53); FREE T4 1.01 NG/DL (0.76-1.46); TOTAL BILIRUBIN ADULT 0.3 MG/DL (0.2-1.0)
[2017-01-11] MEDS: DOCUSATE SODIUM 50 MG/SENNA 8.6 MG TAB PO SCH (08:45)
[2017-01-11] MEDS: SODIUM CHLORIDE 0.9% FLUSH 10 ML FLUSH IV FLUSH SCH ×2 (08:45)
[2017-01-11] MEDS ORDERED: ASPIRIN EC 81 MG TABEC PO SCH (09:45)
[2017-01-11] MEDS ORDERED: METOPROLOL TARTRATE 25 MG TAB PO SCH (10:00)
[2017-01-11 10:55] LABS: HEMOGLOBIN A1a 1.2 %; HEMOGLOBIN A1b 1.7 %; HEMOGLOBIN Ao 85.6 %; HEMOGLOBIN LA1C 1.8 %; HEMOGLOBIN P3 3.5 %
--- NOTE | 2017-01-11 11:45 | PD.CARD.PN ---
Subjective Subjective Remarks alert in nad Objective Medications Current Medications Medications (Trade) Dose Ordered Sig/Mansi Route Start Time Stop Time Status Last Admin Sodium Chloride 1,000 ml @ 100 mls/hr Q10H IV 01/09/17 22:00 01/10/17 01:14 Piperacillin Sod/ Tazobactam Sod 100 ml @ 200 mls/hr Q6H IV 01/10/17 02:00 01/11/17 09:54 Diltiazem HCl 125 mg/Sodium Chloride 125 ml @ 5 mls/hr TITRATE PRN IV 01/09/17 22:30 (Synthroid) 125 mcg DAILY@0600 PO 01/10/17 06:00 01/11/17 05:44 (Tylenol) 650 mg Q4H PRN PO 01/10/17 08:30 (Zofran Inj) 4 mg Q6H PRN IVP 01/10/17 08:30 (Compazine Supp) 25 mg Q12H PRN RECTAL 01/10/17 09:30 (Tylenol) 650 mg Q6H PRN PO 01/10/17 08:30 01/10/17 20:31 (Percocet 5-325 Mg) 1 tab Q6H PRN PO 01/10/17 08:30 (Percocet 10-325 Mg) 1 tab Q6H PRN PO 01/10/17 08:30 (Morphine Inj) 2 mg Q3H PRN IV PUSH 01/10/17 08:30 (Morphine Inj) 4 mg Q3H PRN IV PUSH 01/10/17 08:30 (Narcan Inj) 0.4 mg UNSCH PRN IV PUSH 01/10/17 08:30 (Iwona-Colace) 1 tab BID PO 01/10/17 09:15 01/10/17 20:30 (Milk Of Magnesia Liq) 30 ml Q12H PRN PO 01/10/17 08:30 (Senokot) 17.2 mg Q12H PRN PO 01/10/17 08:30 (Dulcolax Supp) 10 mg DAILY PRN RECTAL 01/10/17 08:30 (Lactulose Liq) 30 ml DAILY PRN PO 01/10/17 08:30 (NS Flush) 2 ml BID IV FLUSH 01/10/17 21:00 01/11/17 08:45 (NS Flush) 2 ml UNSCH PRN IV FLUSH 01/10/17 14:00 (Ecotrin Ec) 81 mg DAILY PO 01/11/17 09:45 01/11/17 09:45 (Lipitor) 80 mg HS PO 01/11/17 21:00 (Lopressor) 25 mg Q12HR PO 01/11/17 10:00 Vital Signs / I&O Vital Signs Date Time Temp Pulse Resp B/P (MAP) Pulse Ox O2 Delivery O2 Flow Rate FiO2 01/11/17 11:01 98.4 68 18 102/64 (77) 100 01/11/17 10:00 66 01/11/17 09:01 98.3 54 18 112/67 (82) 98 01/11/17 09:00 68 01/11/17 08:00 60 01/11/17 07:01 57 01/11/17 05:00 97.6 53 18 109/67 (81) 98 01/11/17 04:00 57 01/11/17 02:00 61 01/11/17 00:00 66 01/11/17 00:00 66 01/11/17 00:00 97.6 66 18 95/58 (70) 96 01/10/17 20:00 70 01/10/17 19:00 100.1 70 18 107/58 (74) 99 01/10/17 18:01 80 01/10/17 17:00 68 01/10/17 16:00 65 01/10/17 15:15 98.9 67 18 117/64 (81) 100 01/10/17 15:00 68 01/10/17 12:00 62 I/O 01/10/17 01/10/17 01/10/17 01/11/17 01/11/17 01/11/17 07:00 15:00 23:00 07:00 15:00 23:00 Intake Total 840 ml 480 ml 240 ml Output Total 700 ml 1000 ml Balance 840 ml -220 ml -760 ml Intake Oral 240 ml 480 ml 240 ml IV Total 600 ml Output Urine Total 700 ml 1000 ml # Voids 1 2 # Bowel Movements 0 Physical Exam GENERAL: SKIN: Warm and dry. HEAD: Normocephalic. EYES: No scleral icterus. No injection or drainage. NECK: Supple, trachea midline. No JVD or lymphadenopathy. CARDIOVASCULAR: Regular rate and rhythm without murmurs, gallops, or rubs. RESPIRATORY: Breath sounds equal bilaterally. No accessory muscle use. GASTROINTESTINAL: Abdomen soft, non-tender, nondistended. MUSCULOSKELETAL: No cyanosis, or edema. BACK: Nontender without obvious deformity. No CVA tenderness. Laboratory Laboratory Tests Test 01/10/17 12:20 01/10/17 15:03 01/11/17 06:34 01/11/17 06:36 Activated Partial Thromboplast Time 44.7 SEC Total Creatine Kinase 134 U/L 128 U/L Troponin I 1.40 NG/ML 1.24 NG/ML Phosphorus Level 2.5 MG/DL 3.8 MG/DL Magnesium Level 1.9 MG/DL 2.1 MG/DL Triglycerides Level 120 MG/DL Cholesterol Level 201 MG/DL LDL Cholesterol 119 MG/DL HDL Cholesterol 58.0 MG/DL Cholesterol/HDL Ratio 3.46 RATIO White Blood Count 3.0 TH/MM3 Red Blood Count 4.02 MIL/MM3 Hemoglobin 12.5 GM/DL Hematocrit 36.7 % Mean Corpuscular Volume 91.4 FL Mean Corpuscular Hemoglobin 31.0 PG Mean Corpuscular Hemoglobin Concent 34.0 % Red Cell Distribution Width 14.0 % Platelet Count 141 TH/MM3 Mean Platelet Volume 9.6 FL Neutrophils (%) (Auto) 47.6 % Lymphocytes (%) (Auto) 32.2 % Monocytes (%) (Auto) 15.8 % Eosinophils (%) (Auto) 3.5 % Basophils (%) (Auto) 0.9 % Neutrophils # (Auto) 1.4 TH/MM3 Lymphocytes # (Auto) 1.0 TH/MM3 Monocytes # (Auto) 0.5 TH/MM3 Eosinophils # (Auto) 0.1 TH/MM3 Basophils # (Auto) 0.0 TH/MM3 CBC Comment DIFF FINAL Differential Comment Blood Urea Nitrogen 9 MG/DL Creatinine 0.79 MG/DL Random Glucose 87 MG/DL Total Protein 6.0 GM/DL Albumin 2.8 GM/DL Calcium Level 7.7 MG/DL Alkaline Phosphatase 63 U/L Aspartate Amino Transf (AST/SGOT) 15 U/L Alanine Aminotransferase (ALT/SGPT) 14 U/L Total Bilirubin 0.3 MG/DL Sodium Level 141 MEQ/L Potassium Level 3.6 MEQ/L Chloride Level 109 MEQ/L Carbon Dioxide Level 27.0 MEQ/L Anion Gap 5 MEQ/L Estimat Glomerular Filtration Rate 73 ML/MIN Free Thyroxine 1.01 NG/DL Thyroid Stimulating Hormone 3rd Gen 1.160 uIU/ML Assessment and Plan Problem List: (1) CAD (coronary artery disease) ICD Codes: I25.10 - Atherosclerotic heart disease of [place] coronary artery without angina pectoris (2) PAF (paroxysmal atrial fibrillation) ICD Codes: I48.0 - Paroxysmal atrial fibrillation (3) HTN (hypertension) ICD Codes: I10 - Essential (primary) hypertension Assessment and Plan 1.) CAD - assymptomatic, continue eliquis, lipitor 2.) PAF - assymptomatic, in nsr, [id number] score=2, rec eliquis 5 mg bid 3.) F/u with me 01/14/17, d/w patient and nurse Bk Weeks MD Jan 11, 2017 11:45
[2017-01-11] MEDS ORDERED: ATOR80TA45 PO (14:20)
[2017-01-11] MEDS ORDERED: APIX5TAB PO (14:20)
[2017-01-11] MEDS ORDERED: METO25TA3 PO (14:20)
--- NOTE | 2017-01-11 14:21 | HHI.DS ---
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 starting 2am no black or red color only food in the vomitus vomited about 22x total, the last vomit was yellow bile dont think she had fever ; abdominal pain in the mid abdomen food ate was from home, no one else was sick the heart rate was high in ER afib with RVR but BP was coming down too did have chest pain the night before all this started at the time of chest pain then, there was no vomiting, no nausea, no abdominal pain, but did feel the palpitations no radiation of pain mid sternal fell at work on the 12/28/16 onto her left side left side has been irritated since that fall- left shoulder went to urgent care then- they did xrays - was just told shoulder was just inflammed, no fracture has been off work for 2 weeks because of that CBC/BMP: 01/11/17 0634 01/11/17 0636 Significant Findings Laboratory Tests Test 01/10/17 01:10 01/10/17 06:46 01/10/17 12:20 01/10/17 15:03 Neutrophils (%) (Auto) 86.2 % (16.0-70.0) Lymphocytes (%) (Auto) 8.3 % (9.0-44.0) Neutrophils # (Auto) 8.5 TH/MM3 (1.8-7.7) Lymphocytes # (Auto) 0.8 TH/MM3 (1.0-4.8) Albumin 3.3 GM/DL (3.4-5.0) Calcium Level 7.5 MG/DL (8.5-10.1) Potassium Level 3.4 MEQ/L (3.5-5.1) Chloride Level 110 MEQ/L (98-107) Estimat Glomerular Filtration Rate 81 ML/MIN (>89) Troponin I 2.41 NG/ML (0.02-0.05) 1.66 NG/ML (0.02-0.05) 1.40 NG/ML (0.02-0.05) 1.24 NG/ML (0.02-0.05) Thyroid Stimulating Hormone 3rd Gen 0.309 uIU/ML (0.358-3.740) Activated Partial Thromboplast Time 44.7 SEC (24.3-30.1) Cholesterol Level 201 MG/DL (120-200) LDL Cholesterol 119 MG/DL (0-99) Test 01/11/17 06:34 01/11/17 06:36 White Blood Count 3.0 TH/MM3 (4.0-11.0) Platelet Count 141 TH/MM3 (150-450) Monocytes (%) (Auto) 15.8 % (0.0-8.0) Neutrophils # (Auto) 1.4 TH/MM3 (1.8-7.7) Total Protein 6.0 GM/DL (6.4-8.2) Albumin 2.8 GM/DL (3.4-5.0) Calcium Level 7.7 MG/DL (8.5-10.1) Chloride Level 109 MEQ/L (98-107) Estimat Glomerular Filtration Rate 73 ML/MIN (>89) PE at Discharge GENERAL: Awake, Alert oriented 3 talkative and cooperative SKIN: Warm and dry. HEAD: Atraumatic. Normocephalic. EYES: Pupils equal and round. No scleral icterus. No injection or drainage. Extraocular muscles intact ENT: No nasal bleeding or discharge. Mucous membranes pink and moist. Tongue is midline NECK: Trachea midline. No JVD. Supple CARDIOVASCULAR: Regular rate and rhythm. S1-S2 no S3 or S4 no heave or thrill or rub or gallop RESPIRATORY: No accessory muscle use. Clear to auscultation. Breath sounds equal bilaterally. GASTROINTESTINAL: Abdomen soft, non-tender, nondistended. Hepatic and splenic margins not palpable. MUSCULOSKELETAL: Extremities without clubbing, cyanosis, or edema. No obvious deformities. NEUROLOGICAL: Awake and alert. No obvious cranial nerve deficits. Motor grossly within normal limits. Five out of 5 muscle strength in the arms and legs. Normal speech. PSYCHIATRIC: Appropriate mood and affect; insight and judgment normal. Pt Condition on Discharge: Stable Discharge Disposition: Discharge Home Discharge Instructions DIET: Follow Instructions for: Heart Healthy Diet Activities you can perform: Regular-No Restrictions Yara Gómez MD Jan 11, 2017 14:21
--- NOTE | 2017-01-11 15:29 | HHI.PR ---
Subjective Remarks Patient complains of poor appetite however denies nausea vomiting chest pain or palpitations. Objective Vitals Vital Signs Date Time Temp Pulse Resp B/P (MAP) Pulse Ox O2 Delivery O2 Flow Rate FiO2 01/11/17 14:01 62 01/11/17 13:00 62 01/11/17 12:01 62 01/11/17 11:01 98.4 68 18 102/64 (77) 100 01/11/17 11:00 66 01/11/17 10:00 66 01/11/17 09:01 98.3 54 18 112/67 (82) 98 01/11/17 09:00 68 01/11/17 08:00 60 01/11/17 07:01 57 01/11/17 05:00 97.6 53 18 109/67 (81) 98 01/11/17 04:00 57 01/11/17 02:00 61 01/11/17 00:00 66 01/11/17 00:00 66 01/11/17 00:00 97.6 66 18 95/58 (70) 96 01/10/17 20:00 70 01/10/17 19:00 100.1 70 18 107/58 (74) 99 01/10/17 18:01 80 01/10/17 17:00 68 01/10/17 16:00 65 I/O 01/10/17 01/10/17 01/10/17 01/11/17 01/11/17 01/11/17 07:00 15:00 23:00 07:00 15:00 23:00 Intake Total 840 ml 480 ml 240 ml Output Total 700 ml 1000 ml Balance 840 ml -220 ml -760 ml Intake Oral 240 ml 480 ml 240 ml IV Total 600 ml Output Urine Total 700 ml 1000 ml # Voids 1 2 # Bowel Movements 0 Result Diagram: 01/11/17 0634 01/11/17 0636 Objective Remarks GENERAL: Well-nourished, well-developed pleasant female patient. SKIN: Warm and dry. HEAD: Normocephalic. EYES: No scleral icterus. No injection or drainage. NECK: Supple, trachea midline. No JVD or lymphadenopathy. CARDIOVASCULAR: Regular rate and rhythm without murmurs, gallops, or rubs. RESPIRATORY: Breath sounds equal bilaterally. No accessory muscle use. GASTROINTESTINAL: Abdomen soft, non-tender, nondistended. EXTREMITIES: No cyanosis, or edema. NEUROLOGICAL: Awake, alert, and oriented x 3. Non-focal. A/P Assessment and Plan -Afib with RVR - resolved now normal sinus rhythm. 2-D echo with EF of 55%. Continue metoprolol and patient has been started on Eliquis by cardiology. -Type II non-ST elevated myocardial infarction - had elevation of troponin. Status post catheterization by Dr. 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 Continue risk factor modification, Lipitor, Eliquis. -Nausea vomiting and abdominal pain. Resolved on its own. Abdominal CT scan was negative. This may have been gastroenteritis. Patient tolerating regular diet. -Leukocytosis, resolved. Was likely due to dehydration. Discharge home. Follow-up with Dr. Weeks on Saturday. Yara Gómez MD Jan 11, 2017 15:29
[2017-01-11] MEDS ORDERED: APIXABAN 5 MG TABLET PO SCH (21:00)
[2017-01-11] MEDS ORDERED: ATORVASTATIN 80 MG TAB PO SCH (21:00)
== END 2017-01-11 15:37 | disposition home or self-care (01) | DRG 280 ==
LOC: NEDDLT 21:50 → HCIS 22:00
PROVIDERS: ADMIT Family Medicine; ATTEND Family Medicine
PROC: B2151ZZ Fluoroscopy of Left Heart using Low Osmolar Contrast (ICD-10-PCS; 2017-01-10)
PROC: 4A023N7 Measurement of Cardiac Sampling and Pressure, Left Heart, Percutaneous Approach (ICD-10-PCS; principal; 2017-01-10 13:00)
DX: I21.A1 Myocardial infarction type 2 (principal); R57.0 Cardiogenic shock; E86.0 Dehydration; I48.0 Paroxysmal atrial fibrillation; E78.1 Pure hyperglyceridemia; E87.6 Hypokalemia; I10 Essential (primary) hypertension; E89.0 Postprocedural hypothyroidism; I25.10 Atherosclerotic heart disease of native coronary artery without angina pectoris; M81.0 Age-related osteoporosis without current pathological fracture; R10.84 Generalized abdominal pain; K52.9 Noninfective gastroenteritis and colitis, unspecified; Z87.891 Personal history of nicotine dependence
CPT/HCPCS: 71010; 74177; 80053; 80061; 81001; 82550; 83036; 83605; 83690; 83735; 84100; 84439; 84443; 84484; 85025; 85610; 85730; 87804; 93005; 93306; 93458; C1769; C1893; J1160; J1644; J2250; J2405; J2543; J3010; J7030; J7040; Q9967